=== PATIENT | male | born 1995 | race Caucasian/White ===

== ENCOUNTER 2022-09-07 09:26 | Outpatient (CLI) | payer OTHER | END 2022-09-07 09:27 | disposition home or self-care (01) | LOC: BICRAD 09:26 | PROVIDERS: ATTEND Neurological Surgery | DX: S22.9XXA Fracture of bony thorax, part unspecified, initial encounter for closed fracture (principal); M43.9 Deforming dorsopathy, unspecified | CPT/HCPCS: 72070 ==